=== PATIENT | female | born 1960 | race Caucasian/White ===

== ENCOUNTER 2019-06-25 18:43 | Inpatient (IN) ==
--- NOTE | 2019-06-25 19:55 | Emergency Department Note ---
Disposition Clinical Impression: Elevated transaminase level, Total bilirubin, elevated, RUQ abdominal pain Disposition: Admitted As Inpatient Condition: Good Time of Disposition: 21:51 Abdominal Pain HPI - General Chief Complaint: ED Abdominal Pain Stated Complaint: ABD Pain/Low back Time Seen by Provider: 06/25/19 19:40 Source: patient, family Mode of arrival: private vehicle Limitations: no limitations Nursing Notes Reviewed: Yes Vital Signs Reviewed: Yes - History of Present Illness HPI Narrative: 59-year-old female that is scheduled to have her gallbladder removed on but she states that she ate some peanut M&Ms on and since then has been having sharp right upper quadrant pain that radiates into her back. Occasionally it is as bad as 10 out of 10, right now is only 7/10. She notes she has only been able to eat canned soup. Although she states that has stayed down. She states that she simply cannot wait until the while she feels like this. She also states that she had a fever last night. Pain Scale: 8 - Related Data Home Medications Medication Instructions Recorded Confirmed Escitalopram [Lexapro] 5 mg PO DAILY 06/25/19 06/25/19 Allergies Allergy/AdvReac Type Severity Reaction Status Date / Time No Known Allergies Allergy Verified 06/25/19 19:14 Review of Systems: In addition to that documented in the HPI above, the additional ROS was obtained: Constitutional: Reports subjective fever last night Eyes: Denies vision changes ENMT: Denies sore throat CV: Denies chest pain Resp: Denies SOB GI: Denies vomiting or diarrhea Reports RUQ pain with radiation into her back : Denies painful urination MSK: Denies recent trauma Skin: Reports hives on her hands this morning, none now Neuro: Denies new numbness or tingling or weakness Endocrine: Denies unexpected weight loss Heme: Denies bleeding disorders Abdominal Pain PMH - Past Medical History Medical history: Reports: no medical history Female Surgical History: Reports: [employer] history: Reports: no [employer] history Psychiatric history: Reports: no psych history - Social History Smoking status: Never smoker Alcohol use: Reports: none Drug use: Reports: none Physical Exam General: A&O x 3. No acute distress. Well developed, well nourished. Head: atraumatic, normocephalic. ENT: No conjunctival injection, moderate scleral icterus. PERRLA. EOMI. Oropharynx non- erythematous. mucous membranes moist. Neuro: No focal deficits, no speech deficit, no facial droop, mentating well. BUE/BLE Str 5/5. Pulm: Lungs CTAB A/P. No wheezes, rales, ronchi. Cardio: RRR no m/r/g. Chest not tender to palpation. Abd: Soft, non-distended. Normoactive bowel sounds. Tender to palpation in RUQ, epigastric area. No guarding. Non rigid. Extremities: Radial pulses 2+ kyra, dorsalis pedis/posterior tibialis 2+ kyra. No LE edema. No cyanosis, clubbing. Skin: warm, dry, intact. No rashes. Psych: Appropriate mood and affect. Answers questions appropriately. Cooperative with exam. - General Limitations: no limitations General appearance: alert Course - Consultations Consultation #1: Spoke with Dr. Parson who states that she will evaluate the patient for possible removal tonight given her elevated LFTs. She requests that the floor call her once the patient is upstairs. Will keep her NPO and give a dose of zosyn. Time: 21:24 Vital Signs Temperature 97.6 F 06/25/19 19:14 Pulse Rate 101 06/25/19 19:14 Respiratory Rate 15 06/25/19 19:14 Blood Pressure 152/84 06/25/19 19:14 O2 Sat by Pulse Oximetry 97 06/25/19 19:14 Temperature 97.6 F 06/25/19 19:14 Pulse Rate 72 06/25/19 20:17 Respiratory Rate 16 06/25/19 20:17 Blood Pressure 99/81 06/25/19 20:17 O2 Sat by Pulse Oximetry 100 06/25/19 20:17 Oxygen Delivery Oxygen Delivery Room Air Procedures - Ultrasound-Other Narrative: Patient was treated for comfort and modesty. Ultrasound study had been placed through [facility] and was pulled up and packs. Phased array probe was used to visualize the gallbladder and a transverse position. Gallbladder was visualized and measurements were taken. Patient had a negative sonographic Maya sign during the exam. Study was ended and images were saved to PACS. Images were reviewed by my attending Dr. Tyrone Fox. Abdominal Pain - MDM Narrative Medical decision making narrative: 59-year-old female with scheduled cholecystectomy for July 12 but states that she has been having right upper quadrant pain since and states that she wants to know if she can have her gallbladder out now. Will obtain labs to include CBC, BMP, LFTs. We will obtain bedside ultrasound. Bedside ultrasound revealed a normal-appearing gallbladder without signs of obstruction. She had a negative sonographic Maya sign. Lab work was still pending. Pt had elevated bilirubin, elevated transaminases, and appeared jaundiced. Spoke with surgeon owner professional engineer, Dr. Parson, who states that she will see the pat ient and evaluate her for possible choleycystectomy. Spoke with Dr. Holly, hospitalist, who agreed to accept the pt to his service. Pt was given a dose of zosyn while in the department, fentanyl to treat her pain, and benadryl for her itching. Results of the workup including any imaging and/or labwork was shared with the patient at bedside. Patient was given an opportunity to ask questions at bedside and all of their concerns were addressed. Patient verbalized understanding and agreement with plan of care. Pt remained stable while in the department. - Medical Records Medical records reviewed: Yes I reviewed the patient's medical records. - Lab Data Lab results reviewed: Yes I reviewed the patient's lab results. Result diagrams: 06/26/19 08:44 06/26/19 08:44 Lab Results 06/25/19 06/25/19 06/25/19 Range/Units 19:47 19:58 19:58 WBC 5.6 (4.3-11.1) K/mcL RBC 3.90 (3.82-4.97) M/mcL Hgb 12.9 (11.5-15.4) g/dL Hct 38.8 (35.3-44.9) % MCV 99.5 (83.0-100.0) fL MCH 33.1 (28.0-33.3) pg MCHC 33.2 (31.6-35.5) g/dL RDW 12.3 (11.5-14.5) % Plt Count 256 (140-400) K/mcL MPV 9.7 (9.4-12.4) fL Immature Gran % 0.4 (0-4) % Seg Neutrophils % 62.8 % Lymphocytes % 27.1 % Monocytes % 6.4 % Eosinophils % 2.0 % Basophils % 1.3 % Neutrophils # 3.5 (1.6-8.9) K/mcL Lymphocytes # 1.5 (0.6-4.6) K/mcL Monocytes # 0.4 (0.0-1.3) K/mcL Eosinophils # 0.1 (0.0-0.6) K/mcL Basophils # 0.1 (0.0-0.2) K/mcL Sodium 136 (136-145) mEq/L Potassium 3.6 (3.5-5.1) mEq/L Chloride 103 (98-107) mEq/L Carbon Dioxide 24 (23-29) mEq/L BUN 7 (6-20) mg/dL Creatinine 0.53 L (0.60-1.20) mg/dL Est GFR ( Amer) > 60 (> 60) Est GFR (Non-Af Amer) > 60 (> 60) BUN/Creatinine Ratio 13 (6-26) Glucose 90 (70-105) mg/dL Calculated Osmolality 280 (280-300) Calcium 9.7 (8.6-10.3) mg/dL Total Bilirubin 5.0 H (0.3-1.0) mg/dL Direct Bilirubin 3.8 H (0.0-0.2) mg/dL Indirect Bilirubin 1.2 (0.0-1.2) mg/dL AST 242 H (13-39) Units/L ALT 451 H (7-52) Units/L Alkaline Phosphatase 160 H (34-104) Units/L Serum Total Protein 7.2 (6.4-8.9) g/dL Albumin 4.3 (3.5-5.7) g/dL Globulin 2.9 (2.4-3.5) g/dL Albumin/Globulin Ratio 1.5 (1.1-2.2) Lipase 20 (11-82) Units/L Urine Color Dark Yellow (Yellow) Urine Clarity Clear (Clear) Urine pH 5.0 (5.0-8.0) pH Units Ur Specific [place] 1.027 H (1.010-1.025) Urine Protein Negative (Neg-Trace) mg/dL Urine Glucose (UA) Normal (Normal) mg/dL Urine Ketones 80 H (Negative) mg/dL Urine Blood Negative (Negative) Urine Nitrite Positive A (Negative) Urine Bilirubin Large H (Negative) Urine Urobilinogen Normal (Normal) mg/dL Ur Leukocyte Esterase Small H (Negative) Urine Microscopic RBC 5-15 H (0-3) per hpf Urine Microscopic WBC 0-3 (0-3) per hpf Ur Squamous Epith Cells Moderate H (None-Few) per lpf Urine Bacteria None Seen (None-Few) per hpf Hyaline Casts None Seen (None-Few) per lpf Ur Culture Indicated? YES A (NO) Attestation Statement - Attestation Attestation: I, Tyrone Fox, examined this patient and my medical decision-making was reviewed with the SURVIVAL SPECIALIST/PA/Advanced Practice Nurse/Resident Physician. I agree with the documented findings, disposition and treatment plan as described except to the extent set forth below. 59-year-old female presents emergency Department with concerns of right upper quadrant abdominal pain. Patient states symptoms have been present intermittently over the past few months. She is scheduled for elective o utpatient surgery for cholecystectomy with Dr. Huffman however it Put off because of emergent cases those days. Patient states she ate peanut butter and limbs yesterday and had significant worsening of her pain. She is mildly jaundiced on her presentation. She noted dark-colored urine and light colored stool. She has diffuse pruritus which is worse in the bilateral wrists. Patient had a bedside ultrasound which did not show obvious gallbladder stone or pericholecystic fluid however patient had an abnormal HIDA scan with Dr. Huffman. We spoke with the surgeon, Dr. Anitra Burt who agrees the plan for admission to hospital. She is started on antibiotics in the emergency department. Patient will be admitted to the hospitalist for further care and evaluation. Patient was made nothing by mouth in the emergency department.
[2019-06-25 20:04] LABS: Bilirubin,Urine Large (Negative); Blood,Urine Negative (Negative); Clarity,Urine Clear (Clear); Glucose,Urine (UA) Normal (Normal); Ketones,Urine 80 mg/dL (Negative); Leukocyte Esterase,Urine Small (Negative); Nitrite,Urine Positive (Negative); Protein,Urine Negative (Neg-Trace); Specific Gravity,Urine 1.027 (1.010-1.025); Urobilinogen,Urine Normal (Normal)
[2019-06-25 20:06] LABS: Bacteria,Urine None Seen per hpf (None-Few); Hyaline Casts,Urine None Seen per lpf (None-Few); Squamous Epithelial Cell,Urine Moderate per lpf (None-Few); WBC,Urine 0-3 per hpf (0-3)
[2019-06-25 20:18] LABS: Color,Urine Dark Yellow (Yellow)
[2019-06-25] MEDS ORDERED: *HR* FentaNYL (PF) 100 MCG/2 ML VIAL IVP ONE (20:27)
[2019-06-25 20:49] LABS: Basophils # 0.1 K/mcL (0.0-0.2); Basophils % 1.3 %; Eosinophils # 0.1 K/mcL (0.0-0.6); Hematocrit 38.8 % (35.3-44.9); Hemoglobin 12.9 g/dL (11.5-15.4); Immature Granulocytes % 0.4 % (0-4); Lymphocytes # 1.5 K/mcL (0.6-4.6); Lymphocytes % 27.1 %; Mean Corpuscular HGB Conc 33.2 g/dL (31.6-35.5); Mean Corpuscular Hemoglobin 33.1 pg (28.0-33.3); Mean Corpuscular Volume 99.5 fL (83.0-100.0); Mean Platelet Volume 9.7 fL (9.4-12.4); Monocytes # 0.4 K/mcL (0.0-1.3); Monocytes % 6.4 %; Neutrophils # 3.5 K/mcL (1.6-8.9); Platelet Count 256 K/mcL (140-400); Red Cell Distribution Width 12.3 % (11.5-14.5); Segmented Neutrophils % 62.8 %; White Blood Count 5.6 K/mcL (4.3-11.1)
[2019-06-25 21:08] LABS: Alanine Aminotransferase 451 Units/L (7-52); Albumin 4.3 g/dL (3.5-5.7); Albumin/Globulin Ratio 1.5 (1.1-2.2); Alkaline Phosphatase 160 Units/L (34-104); Aspartate Amino Transferase 242 Units/L (13-39); BUN/Creatinine Ratio 13 (6-26); Bilirubin,Direct 3.8 mg/dL (0.0-0.2); Bilirubin,Indirect 1.2 mg/dL (0.0-1.2); Blood Urea Nitrogen 7 mg/dL (6-20); Calcium 9.7 mg/dL (8.6-10.3); Carbon Dioxide 24 mEq/L (23-29); Chloride 103 mEq/L (98-107); Globulin 2.9 g/dL (2.4-3.5); Glucose 90 mg/dL (70-105); Lipase 20 Units/L (11-82); Osmolality,Calculated 280 (280-300); Potassium 3.6 mEq/L (3.5-5.1); Sodium 136 mEq/L (136-145); Total Protein 7.2 g/dL (6.4-8.9); eGFR For African Americans > 60 (> 60); eGFR For Non-African Americans > 60 (> 60)
[2019-06-25] MEDS ORDERED: Piperacillin/Tazobactam 3.375 GM in 0.9 % Sodium Chloride Mini Bag 100 ML IVPB ONE (21:28)
[2019-06-25] MEDS ORDERED: Isovue-370 500 ML BOTTLE IVP ONE (21:43)
[2019-06-25] MEDS ORDERED: Naloxone 0.4 MG/ML INJ IVP PRN (22:51)
[2019-06-25] MEDS ORDERED: Ondansetron 4 MG/2 ML VIAL IVP PRN (22:51)
[2019-06-25] MEDS ORDERED: 0.9 % Sodium Chloride 1,000 ML IVC SCH (23:00)
[2019-06-26] MEDS: Ketorolac 15 MG/ML VIAL IVP PRN ×2 (01:03→08:03)
--- NOTE | 2019-06-26 04:24 | Internal Med History&Physical ---
Date of Encounter: 06/26/19 Time of Encounter: 04:24 Internal Medicine - H&P: HPI Chief complaint: Abdominal pain History of present illness: Ms. Mercado is a 59 year old female with no significant past medical history who presented to the ED with complaints of abdominal pain. Symptoms began on with reported right upper quadrant abdominal pain radiating to her back described as colicky and exacerbated with certain foods. At worst 10 out of 10 in intensity. She reports subjective fever, chills and nausea. No reports of vomiting, or diarrhea. Denies unintentional weight loss. Patient does not smoke. No alcohol history. Family history of an abdominal cancer in her father. Patient states she has an appointment with Dr. Huffman for elective cholecystectomy which has been postponed on 2 occasions and has been postponed until July 12. At this time she feels that she cannot wait until the and was requesting to see if she can get her gallbladder out now. On arrival patient was afebrile, hemodynamically stable. Initial laboratory workup notable for total bilirubin of 5 with a direct hyperbilirubinemia and elevated liver enzymes. Patient was noted to be jaundiced. Bedside ultrasound revealed a normal-appearing gallbladder without signs of obstruction. She had a negative sonographic Maya sign. CT scan of the abdomen and pelvis with contrast was performed which showed intra-and extrahepatic biliary ductal dilatation with a headache low attenuating focus in the pancreatic head. Evidence of cholelithiasis without cholecystitis was seen. Pt was given a dose of zosyn while in the department, fentanyl to treat her pain. Case was discussed with Dr. Parson, who states that she will see the patient and evaluate her for possible choleycystectomy. Past Med Surg Social Fam HX - Past Medical History Medical history: no medical history Additional medical history: Depression. Abnormal Hida Scan. Right Upper Abdominal Pain Psychiatric history: no psych history - Past Surgical History Surgical History: - Social History Smoking Status: Never smoker Smokeless Tobacco Status: No Alcohol use: none Drug use: none - Family History Father Adopted: No Family Member Ethnicity: Non- Living Status: Age at : 74 Cause of : cancer Hx Family Cancer: Yes (stomach) Internal Medicine - H&P: Meds Escitalopram [Lexapro] 5 mg PO DAILY 06/25/19 [History] Allergy/AdvReac Type Severity Reaction Status Date / Time No Known Allergies Allergy Verified 06/25/19 19:14 All Systems PM: A 10-system review of systems was performed and is negative for pertinent findings except as documented above in the HPI. - Constitutional Constitutional: no chills, no fever(s), no night sweats - EENT Eyes: no change in vision, no discharge, no pain, no photophobia Ears: no ear discharge, no ear pain, no tinnitus Nose, mouth and throat: no dysphagia, no nasal discharge, no neck pain, no sore throat - Cardiovascular Cardiovascular ROS IM: no chest pain, no diaphoresis, no dyspnea, no lig htheadedness, no palpitations, no syncope - Respiratory Respiratory: no cough, no dyspnea, no wheezing, no excessive phlegm production - Gastrointestinal Gastrointestinal: no abdominal pain, no diarrhea, no hematemesis, no hematochezia, no melena, no nausea, no vomiting - Genitourinary Genitourinary: no change in urinary stream, no dysuria, no flank pain, no hematuria - Musculoskeletal Musculoskeletal ROS IM: no numbness, no tingling - Integumentary Integumentary IM: no rash, no unusual bruising - Neurological Neurological ROS: no confusion, no convulsions, no focal weakness, no numbness, no tingling, no tremor(s) - Hematologic/Lymphatic Hematologic/Lymphatic: no easy bruising - Constitutional Vitals: Temp Pulse Resp BP Pulse Ox 98.7 F 81 18 118/82 97 06/26/19 03:43 06/26/19 03:43 06/26/19 03:43 06/26/19 03:43 06/26/19 03:43 Exam: General: Alert and oriented 3 Skin:Normal color, no rash, no lesions. HEENT:EOM, pupils equal, round and reactive. Cardiovascular:Normal S1 & S2, no rubs, murmurs or gallops. No JVD. Pulse reg ular. Lungs:Normal breath sounds, no wheezes or crackles. Abdomen:Soft, non-tender, no rigidity. Mild right upper quadrant tenderness to palpation Extremities:No deformity, no edema or tenderness, no joint swelling or clubbing. Neurological:Normal cognition and motor skills. Pulses:Carotid and radial pulses normal +2. Rest of the physical exam is non contributory Internal Med - H&P Results - Labs CBC & Chem 7: 06/26/19 08:44 06/25/19 19:58 Labs: Short CBC 06/25/19 Range/Units 19:58 WBC 5.6 (4.3-11.1) K/mcL Hgb 12.9 (11.5-15.4) g/dL Hct 38.8 (35.3-44.9) % Plt Count 256 (140-400) K/mcL Neutrophils # 3.5 (1.6-8.9) K/mcL BMP 06/25/19 19:58 Sodium 136 Potassium 3.6 Chloride 103 Carbon Dioxide 24 BUN 7 Creatinine 0.53 L Glucose 90 Calcium 9.7 Liver Function 06/25/19 Range/Units 19:58 Total Bilirubin 5.0 H (0.3-1.0) mg/dL Direct Bilirubin 3.8 H (0.0-0.2) mg/dL AST 242 H (13-39) Units/L ALT 451 H (7-52) Units/L Alkaline Phosphatase 160 H (34-104) Units/L Albumin 4.3 (3.5-5.7) g/dL Urine 06/25/19 Range/Units 19:47 Urine Color Dark Yellow (Yellow) Urine Clarity Clear (Clear) Urine pH 5.0 (5.0-8.0) pH Units Ur Specific [place] 1.027 H (1.010-1.025) Urine Protein Negative (Neg-Trace) mg/dL Urine Glucose (UA) Normal (Normal) mg/dL - Impressions ITS Impressions Gallbladder Ultrasound 06/25/19 21:03 IMPRESSION: Intra and extrahepatic biliary ductal dilatation. A distal obstructing lesion is not excluded. Additional imaging with MRI with MRCP or ERCP should be considered. D/ / Nicanor Bañuelos / Nicanor Bañuelos Interpreting Provider: Nicanor Bañuelos Abdomen CT 06/25/19 21:43 IMPRESSION: Intra and extrahepatic biliary ductal dilatation with vague low attenuating focus in the pancreatic head/uncinate process. MRI with MRCP is advised for complete characterization. Cholelithiasis without evidence of cholecystitis. Layering biliary sludge. The findings were sent to the Radiology Results Communication [facility] at 10:44 pm on 06/25/2019to be communicated to a licensed caregiver. D/ / Nicanor Bañuelos / Nicanor Bañuelos Interpreting Provider: Nicanor Bañuelos - Assessment and Plan (1) RUQ abdominal pain Current Visit: Yes Status: Acute Assessment and plan: Patient presenting with right upper quadrant colicky abdominal pain exacerbated with food radiating to the back concerning for acute cholecystitis. Noted to have significant elevation in bilirubin with a predominantly direct hyperbilirubinemia. CT scan of the abdomen showing evidence of cholelithiasis without evidence of cholecystitis. Additionally, intra-and extrahepatic biliary duct dilatation with vague low attenuating focus in the pancreatic head was noted with recommendation for MRCP. Due to concern for choledocholithiasis, case was discussed with Dr. Talley with gastroenterology. He recommended MRCP as well as MRI of the abdomen for further characterization of pancreatic head lesion. CA 199 was also ordered. Discussed case with surgery who will also evaluate the patient in the morning. -We will obtain MRCP/MRI today -Support with fluids -Pain control as needed -Follow up CA 199 -Keep patient NPO -Follow up surgery/GI recommendations (2) Elevated transaminase level Current Visit: Yes Status: Acute Assessment and plan: See above (3) Total bilirubin, elevated Current Visit: Yes Status: Acute Assessment and plan: See above - Time Spent With Patient Total time spent is greater than 50% in coordination of care (as documented) at patient's floor/unit and/or counseling patient:
[2019-06-26] MEDS ORDERED: Gadolinium Contrast Agent (WT Based) IV PRN (04:49)
[2019-06-26] MEDS: Piperacillin/Tazobactam 3.375 GM in 0.9 % Sodium Chloride Mini Bag 100 ML IVPB SCH ×3 (05:13→21:28)
--- NOTE | 2019-06-26 08:51 | AcuteCare Surgery Consult Note ---
Date of Encounter: 06/26/19 Time of Encounter: 08:00 Assessment and Plan (1) Total bilirubin, elevated Current Visit: Yes Status: Acute ABD/Pelvis CT reveals cholelithiasis with dilated intrahepatic and extrahepatic bile ducts as well as small abnormality on the pancreatic head. Pt sees Dr. Huffman and is scheduled for lap melissa with him soon. We will obtain MRCP to evaluate for distal CBD stone vs pancreatic head mass. If MRCP reveals CBD stone then will consult GI for ERCP prior to lap melissa. (2) RUQ abdominal pain Current Visit: Yes Status: Acute (3) Cholelithiasis Current Visit: Yes Status: Acute (4) Abnormal abdominal CT scan Current Visit: Yes Status: Acute Past Med Surg Social Fam HX - Past Medical History Medical history: no medical history Additional medical history: Depression. Abnormal Hida Scan. Right Upper Abdominal Pain Psychiatric history: no psych history - Past Surgical History Surgical History: - Social History Smoking Status: Never smoker Smokeless Tobacco Status: No Alcohol use: none Drug use: none - Family History Father Adopted: No Family Member Ethnicity: Non- Living Status: Age at : 74 Cause of : cancer Hx Family Cancer: Yes (stomach) Medications and Allergies Escitalopram [Lexapro] 10 mg PO DAILY 06/25/19 [History] Allergy/AdvReac Type Severity Reaction Status Date / Time No Known Allergies Allergy Verified 06/26/19 14:23 Review of Systems All systems PM: The remainder of the systems were reviewed and are negative General Surgery Exam Initial Vital Signs Temp Pulse Resp BP Pulse Ox 97.6 F 101 15 152/84 97 06/25/19 19:14 06/25/19 19:14 06/25/19 19:14 06/25/19 19:14 06/25/19 19:14 Exam Initial Vital Signs Temp Pulse Resp BP Pulse Ox 97.6 F 101 15 152/84 97 06/25/19 19:14 06/25/19 19:14 06/25/19 19:14 06/25/19 19:14 06/25/19 19:14 Results - Labs 06/26/19 08:44 06/26/19 08:44 Abnormal lab results Creatinine 0.53 mg/dL (0.60-1.20) L 06/25/19 19:58 Total Bilirubin 5.0 mg/dL (0.3-1.0) H 06/25/19 19:58 Direct Bilirubin 3.8 mg/dL (0.0-0.2) H 06/25/19 19:58 AST 242 Units/L (13-39) H 06/25/19 19:58 ALT 451 Units/L (7-52) H 06/25/19 19:58 Alkaline Phosphatase 160 Units/L (34-104) H 06/25/19 19:58 Ur Specific [place] 1.027 (1.010-1.025) H 06/25/19 19:47 Urine Ketones 80 mg/dL (Negative) H 06/25/19 19:47 Urine Nitrite Positive (Negative) A 06/25/19 19:47 Urine Bilirubin Large (Negative) H 06/25/19 19:47 Ur Leukocyte Esterase Small (Negative) H 06/25/19 19:47 Urine Microscopic RBC 5-15 per hpf (0-3) H 06/25/19 19:47 Ur Squamous Epith Cells Moderate per lpf (None-Few) H 06/25/19 19:47 Ur Culture Indicated? YES (NO) A 06/25/19 19:47 Diabetes panel 06/25/19 Range/Units 19:58 Sodium 136 (136-145) mEq/L Potassium 3.6 (3.5-5.1) mEq/L Chloride 103 (98-107) mEq/L Carbon Dioxide 24 (23-29) mEq/L BUN 7 (6-20) mg/dL Creatinine 0.53 L (0.60-1.20) mg/dL Glucose 90 (70-105) mg/dL Calcium 9.7 (8.6-10.3) mg/dL AST 242 H (13-39) Units/L ALT 451 H (7-52) Units/L Alkaline Phosphatase 160 H (34-104) Units/L Albumin 4.3 (3.5-5.7) g/dL Calcium panel 06/25/19 Range/Units 19:58 Calcium 9.7 (8.6-10.3) mg/dL Albumin 4.3 (3.5-5.7) g/dL Pituitary panel 06/25/19 Range/Units 19:58 Sodium 136 (136-145) mEq/L Potassium 3.6 (3.5-5.1) mEq/L Chloride 103 (98-107) mEq/L Carbon Dioxide 24 (23-29) mEq/L BUN 7 (6-20) mg/dL Creatinine 0.53 L (0.60-1.20) mg/dL Glucose 90 (70-105) mg/dL Calcium 9.7 (8.6-10.3) mg/dL Adrenal panel 06/25/19 Range/Units 19:58 Sodium 136 (136-145) mEq/L Potassium 3.6 (3.5-5.1) mEq/L Chloride 103 (98-107) mEq/L Carbon Dioxide 24 (23-29) mEq/L BUN 7 (6-20) mg/dL Creatinine 0.53 L (0.60-1.20) mg/dL Glucose 90 (70-105) mg/dL Calcium 9.7 (8.6-10.3) mg/dL Total Bilirubin 5.0 H (0.3-1.0) mg/dL AST 242 H (13-39) Units/L ALT 451 H (7-52) Units/L Alkaline Phosphatase 160 H (34-104) Units/L Albumin 4.3 (3.5-5.7) g/dL All other labs normal. Consult Discharge Plan - Plan Referrals: Pal Gar MD [Primary Care Provider] -
[2019-06-26 09:07] LABS: Basophils # 0.1 K/mcL (0.0-0.2); Eosinophils # 0.1 K/mcL (0.0-0.6); Hematocrit 38.6 % (35.3-44.9); Hemoglobin 12.5 g/dL (11.5-15.4); Immature Granulocytes % 0.6 % (0-4); Lymphocytes # 0.9 K/mcL (0.6-4.6); Lymphocytes % 19.1 %; Mean Corpuscular HGB Conc 32.4 g/dL (31.6-35.5); Mean Corpuscular Hemoglobin 32.8 pg (28.0-33.3); Mean Corpuscular Volume 101.3 fL (83.0-100.0); Mean Platelet Volume 9.5 fL (9.4-12.4); Monocytes # 0.2 K/mcL (0.0-1.3); Neutrophils # 3.5 K/mcL (1.6-8.9); Platelet Count 234 K/mcL (140-400); Red Blood Count 3.81 M/mcL (3.82-4.97); Red Cell Distribution Width 12.2 % (11.5-14.5); Segmented Neutrophils % 73.3 %; White Blood Count 4.8 K/mcL (4.3-11.1)
[2019-06-26 09:13] LABS: Prothrombin Time 11.5 Seconds (9.4-12.1)
[2019-06-26 09:16] LABS: Activated Partial Thrombo Time 35.5 Seconds (26.0-36.0)
[2019-06-26 09:26] LABS: Alanine Aminotransferase 361 Units/L (7-52); Albumin 3.9 g/dL (3.5-5.7); Albumin/Globulin Ratio 1.6 (1.1-2.2); Alkaline Phosphatase 155 Units/L (34-104); Aspartate Amino Transferase 169 Units/L (13-39); BUN/Creatinine Ratio 18 (6-26); Bilirubin,Total 5.4 mg/dL (0.3-1.0); Blood Urea Nitrogen 9 mg/dL (6-20); Calcium 9.3 mg/dL (8.6-10.3); Carbon Dioxide 20 mEq/L (23-29); Chloride 104 mEq/L (98-107); Globulin 2.5 g/dL (2.4-3.5); Glucose 71 mg/dL (70-105); Osmolality,Calculated 287 (280-300); Potassium 3.9 mEq/L (3.5-5.1); Sodium 140 mEq/L (136-145); Total Protein 6.4 g/dL (6.4-8.9); eGFR For African Americans > 60 (> 60); eGFR For Non-African Americans > 60 (> 60)
[2019-06-26] MEDS ORDERED: traMADol 50 MG TABLET PO ONE ×2 (11:35→19:59)
[2019-06-26] MEDS ORDERED: *HR* FentaNYL (PF) 100 MCG/2 ML VIAL IVP PRN (13:56)
--- NOTE | 2019-06-26 14:07 | Internal Med Progress Note ---
Hospitalist Progress Note - Encounter Date of Encounter: 06/26/19 Time of Encounter: 14:01 - Exam Vitals: Temp Pulse Resp BP Pulse Ox 97.9 F 66 15 143/75 97 06/26/19 12:41 06/26/19 12:41 06/26/19 12:41 06/26/19 12:41 06/26/19 12:41 Exam: General: Ill-appearing and in no acute distress HEENT: No erythema of posterior pharynx. No exudates. Lymphatics: No mandibular or cervical lymphadenopathy Cardiovascular: RRR. No murmurs. No chest wall tenderness. Lungs: Clear to auscelltation bilaterally. Regular chest rise. Abdomen: Mile RUQ and epigastric tenderness. No rebound or gaurding. Nl bowel sounds. Extremities: No edema. 2+ pulses radial and pedal pulses Skin: Raised papular rash of wrists, palms, and ankles Psych: Nl attention. A&Ox3 Neuro: car audio installer II-XII intact. 5/5 strength. Sensation to light touch and pinprick intact. - Assessment and Plan (1) RUQ abdominal pain Current Visit: Yes Status: Acute Assessment and Plan: Patient with history of cholestasis with planned laparoscopic cholecystectomy for later this month presents with progressive right upper quadrant pain after eating in the setting of stable vitals on admission, right upper quadrant tenderness with positive Maya's sign on physical exam, elevated bili and transaminases, and CT with evidence of intra-and extra hepatic biliary dilation with focus on pancreatic head. -Patient has evidence of cholestasis but unclear if this is related to obstruction from a pancreatic head mass versus gallstones -MRCP was recommended and will be completed today -Surgery has been consulted PLAN: - MRCP - Pain control - Surgery consulting, appreciate recommendations (2) Cholestasis Current Visit: Yes Status: Acute Assessment and Plan: See above (3) Pruritic rash Current Visit: Yes Status: Acute Assessment and Plan: Presumably secondary to cholestasis given timing and characteristics of rash. - Benadryl cream when necessary - Treatment of underlying disease process DVT Prophylaxis: LMWH Internal Medicine: Result - Labs CBC & Chem 7: 06/26/19 08:44 06/26/19 08:44 Labs: Short CBC 06/25/19 06/26/19 Range/Units 19:58 08:44 WBC 5.6 4.8 (4.3-11.1) K/mcL Hgb 12.9 12.5 (11.5-15.4) g/dL Hct 38.8 38.6 (35.3-44.9) % Plt Count 256 234 (140-400) K/mcL Neutrophils # 3.5 3.5 (1.6-8.9) K/mcL BMP 06/25/19 06/26/19 19:58 08:44 Sodium 136 140 Potassium 3.6 3.9 Chloride 103 104 Carbon Dioxide 24 20 L BUN 7 9 Creatinine 0.53 L 0.51 L Glucose 90 71 Calcium 9.7 9.3 Liver Function 06/25/19 06/26/19 Range/Units 19:58 08:44 Total Bilirubin 5.0 H 5.4 H (0.3-1.0) mg/dL Direct Bilirubin 3.8 H (0.0-0.2) mg/dL AST 242 H 169 H (13-39) Units/L ALT 451 H 361 H (7-52) Units/L Alkaline Phosphatase 160 H 155 H (34-104) Units/L Albumin 4.3 3.9 (3.5-5.7) g/dL Urine 06/25/19 Range/Units 19:47 Urine Color Dark Yellow (Yellow) Urine Clarity Clear (Clear) Urine pH 5.0 (5.0-8.0) pH Units Ur Specific [place] 1.027 H (1.010-1.025) Urine Protein Negative (Neg-Trace) mg/dL Urine Glucose (UA) Normal (Normal) mg/dL - ABG Interpretation ABG results: PT/INR, D-dimer PT 11.5 Seconds (9.4-12.1) 06/26/19 08:44 - Impressions Impressions Gallbladder Ultrasound 06/25/19 21:03 IMPRESSION: Intra and extrahepatic biliary ductal dilatation. A distal obstructing lesion is not excluded. Additional imaging with MRI with MRCP or ERCP should be considered. D/ / Nicanor Bañuelos / Nicanor Bañuelos Interpreting Provider: Nicanor Bañuelos Abdomen CT 06/25/19 21:43 IMPRESSION: Intra and extrahepatic biliary ductal dilatation with vague low attenuating focus in the pancreatic head/uncinate process. MRI with MRCP is advised for complete characterization. Cholelithiasis without evidence of cholecystitis. Layering biliary sludge. The findings were sent to the [facility]iology [facility] at 10:44 pm on 06/25/2019to be communicated to a licensed caregiver. D/ / Nicanor Bañuelos / Nicanor Bañuelos Interpreting Provider: Nicanor Bañuelos Consult Discharge Plan - Plan Referrals: Pal Gar MD [Primary Care Provider] -
[2019-06-26] MEDS: *HR* OxyCODONE Immed Rel 5 MG TABLET PO PRN ×3 (14:52→23:36)
[2019-06-26] MEDS: DiphenhydraMINE CREAM 28.4 GM TUBE TP PRN ×2 (16:31→22:21)
[2019-06-26] MEDS: Ringers Solution, Lactated 1,000 ML IVC SCH (16:31)
[2019-06-26] MEDS ORDERED: traMADol 50 MG TABLET PO PRN (20:52)
[2019-06-26 21:35] LABS: Hepatitis B Surface Antigen Nonreactive (Nonreactive)
[2019-06-26 22:04] LABS: Hepatitis B Core IgM Nonreactive (Nonreactive); Hepatitis C Virus Antibody Nonreactive (Nonreactive)
[2019-06-26 22:05] LABS: Hepatitis A Antibody IgM Nonreactive (Nonreactive)
[2019-06-26] MEDS: *HR* Heparin 5,000 UNIT/ML VIAL SQ SCH (22:25)
[2019-06-27] MEDS: DiphenhydraMINE CREAM 28.4 GM TUBE TP PRN ×2 (03:46→14:31)
[2019-06-27 05:08] LABS: Hematocrit 36.3 % (35.3-44.9); Mean Corpuscular HGB Conc 33.1 g/dL (31.6-35.5); Mean Corpuscular Hemoglobin 32.9 pg (28.0-33.3); Mean Corpuscular Volume 99.5 fL (83.0-100.0); Mean Platelet Volume 9.6 fL (9.4-12.4); Platelet Count 236 K/mcL (140-400); Red Blood Count 3.65 M/mcL (3.82-4.97); Red Cell Distribution Width 12.5 % (11.5-14.5); White Blood Count 4.6 K/mcL (4.3-11.1)
[2019-06-27] MEDS ORDERED: *HR* Enoxaparin 40 MG/0.4 ML SYRINGE SQ SCH (06:00)
[2019-06-27] MEDS: *HR* Heparin 5,000 UNIT/ML VIAL SQ SCH ×3 (06:01→21:06)
[2019-06-27] MEDS: Piperacillin/Tazobactam 3.375 GM in 0.9 % Sodium Chloride Mini Bag 100 ML IVPB SCH ×3 (06:03→21:08)
--- NOTE | 2019-06-27 09:25 | AcuteCareSurgery Progress Note ---
Date of Encounter: 06/27/19 Time of Encounter: 07:50 - Assessment and Plan (1) Cholelithiasis with choledocholithiasis Current Visit: Yes Status: Acute The patient is seen and evaluated on morning rounds with the acute care surgery team. She will require ERCP for demonstrated choledocholithiasis prior to surgical intervention for cholelithiasis. We will follow along with you. Surgical planning based on ERCP results Subjective Narrative: The patient has a bilirubin of 5.4 and cholelithiasis with choledocholithiasis demonstrated on MRCP. She will require preoperative ERCP with sphincterotomy and stone removal. We would plan convalescent laparoscopic cholecystectomy during this hospitalization once the bilirubin has normalized. We will continue to follow along with you. Surgical planning based on ERCP findings Objective Vital Signs - Last 8 Hours Temp Pulse Resp BP Pulse Ox 06/27/19 06:56 98.0 F 68 15 124/73 98 06/27/19 04:24 98.4 F 101 14 144/81 95 Intake and Output 06/26/19 06/27/19 06/27/19 23:59 07:59 15:59 Intake Total 100 / 1300 100 / 100 Output Total 0 / 0 Balance 100 / 1300 100 / 100 Intake: IV Fluids 100 / 1300 100 / 100 Zosyn 3.375 GM In 0.9 % Sodium 100 / 200 100 / 100 Chloride (Mini-Bag +) 100 ML @ 25 mls/hr IVPB Q8H [facility] Rx#: [id number] Oral 0 / 0 0 / 0 Output: Urine 0 / 0 Other: # Voids 1 Weight 88 kg Blood Glucose* 60 Patient Weight 06/27/19 23:59 Weight 88 kg - General physical appearance well developed, well nourished, obese - Respiratory normal expansion, normal respiratory effort, clear to percussion, clear to au scultation - Cardiovascular Cardiovascular exam: Present: RRR, no murmurs/rubs/gallops - Abdomen Abdomen: Present: bowel sounds present, soft, non tender - Neurologic CN 2-12 grossly intact - Psychiatric oriented to time, oriented to person, oriented to place, speech is normal, memory intact - Labs 06/27/19 04:30 06/26/19 08:44 Diabetes panel 06/26/19 Range/Units 08:44 Sodium 140 (136-145) mEq/L Potassium 3.9 (3.5-5.1) mEq/L Chloride 104 (98-107) mEq/L Carbon Dioxide 20 L (23-29) mEq/L BUN 9 (6-20) mg/dL Creatinine 0.51 L (0.60-1.20) mg/dL Glucose 71 (70-105) mg/dL Calcium 9.3 (8.6-10.3) mg/dL AST 169 H (13-39) Units/L ALT 361 H (7-52) Units/L Alkaline Phosphatase 155 H (34-104) Units/L Albumin 3.9 (3.5-5.7) g/dL Calcium panel 06/26/19 Range/Units 08:44 Calcium 9.3 (8.6-10.3) mg/dL Albumin 3.9 (3.5-5.7) g/dL Pituitary panel 06/26/19 Range/Units 08:44 Sodium 140 (136-145) mEq/L Potassium 3.9 (3.5-5.1) mEq/L Chloride 104 (98-107) mEq/L Carbon Dioxide 20 L (23-29) mEq/L BUN 9 (6-20) mg/dL Creatinine 0.51 L (0.60-1.20) mg/dL Glucose 71 (70-105) mg/dL Calcium 9.3 (8.6-10.3) mg/dL Adrenal panel 06/26/19 Range/Units 08:44 Sodium 140 (136-145) mEq/L Potassium 3.9 (3.5-5.1) mEq/L Chloride 104 (98-107) mEq/L Carbon Dioxide 20 L (23-29) mEq/L BUN 9 (6-20) mg/dL Creatinine 0.51 L (0.60-1.20) mg/dL Glucose 71 (70-105) mg/dL Calcium 9.3 (8.6-10.3) mg/dL Total Bilirubin 5.4 H (0.3-1.0) mg/dL AST 169 H (13-39) Units/L ALT 361 H (7-52) Units/L Alkaline Phosphatase 155 H (34-104) Units/L Albumin 3.9 (3.5-5.7) g/dL Consult Discharge Plan - Plan Referrals: Pal Gar MD [Primary Care Provider] -
[2019-06-27] MEDS: Ringers Solution, Lactated 1,000 ML IVC SCH (09:38)
--- NOTE | 2019-06-27 11:21 | Internal Med Progress Note ---
Hospitalist Progress Note - Encounter Date of Encounter: 06/27/19 Time of Encounter: 11:19 - Subjective Interval History: Feels better than she did yesterday. Has been able to tolerate clear liquid diet. Does not want to advance further. - Exam Vitals: Temp Pulse Resp BP Pulse Ox 98.0 F 68 15 124/73 98 06/27/19 06:56 06/27/19 06:56 06/27/19 06:56 06/27/19 06:56 06/27/19 06:56 Exam: General: Alert and oriented 3 Skin:Normal color, no rash, no lesions. HEENT:EOM, pupils equal, round and reactive. Cardiovascular:Normal S1 & S2, no rubs, murmurs or gallops. No JVD. Pulse regular. Lungs:Normal breath sounds, no wheezes or crackles. Abdomen:Soft, non-tender, no rigidity. Mild right upper quadrant tenderness to palpation Extremities:No deformity, no edema or tenderness, no joint swelling or clubbing. Neurological:Normal cognition and motor skills. Pulses:Carotid and radial pulses normal +2. Rest of the physical exam is non contributory - Assessment and Plan (1) Choledocholithiasis Current Visit: Yes Status: Acute Assessment and Plan: Patient with history of cholestasis with planned laparoscopic cholecystectomy for later this month presents with progressive right upper quadrant pain after eating in the setting of stable vitals on admission, right upper quadrant tenderness with positive Maya's sign on physical exam, elevated bili and transaminases, CT evidence of cholelithiasis without evidence of cholecystitis, and MRCP with evidence of choledochlithiasis. -Case discussed with both GI and surgery Plan for ERCP Thursday Planned for laparoscopic cholecystectomy thereafter Common bile duct stone is small and thus alternative etiologies should be considered GI recommended obtaining autoimmune labs which are pending PLAN: - Clear liquid diet today - Nothing by mouth at midnight for ERCP tomorrow - Pain control - Autoimmune w/u: MARA, AMA, Anti-goldberg Ig - IVF - Zosyn (2) Cholelithiasis Current Visit: Yes Status: Acute Assessment and Plan: Plans for lap melissa after ERCP (3) Pruritic rash Current Visit: Yes Status: Acute Assessment and Plan: Presumably secondary to cholestasis given timing and characteristics of rash. - Benadryl cream when necessary - Treatment of underlying disease process DVT Prophylaxis: heparin Internal Medicine: Result - Labs CBC & Chem 7: 06/27/19 04:30 06/26/19 08:44 Labs: Short CBC 06/27/19 Range/Units 04:30 WBC 4.6 (4.3-11.1) K/mcL Hgb 12.0 (11.5-15.4) g/dL Hct 36.3 (35.3-44.9) % Plt Count 236 (140-400) K/mcL - ABG Interpretation ABG results: PT/INR, D-dimer PT 11.5 Seconds (9.4-12.1) 06/26/19 08:44 - Impressions Impressions Abdomen MRI 06/26/19 04:49 IMPRESSION: 1. Mild to moderate intra- and extrahepatic biliary dilatation. The common bile duct demonstrates normal distal tapering. Questionable distal common bile duct stone measuring 2 mm may be present. No discrete periampullary mass or pancreatic mass. 2. Cholelithiasis with gallbladder sludge. No MRI evidence of acute cholecystitis. D/ / 06/26/2019 16:38:16 Susy Bush MD / dixie Interpreting Provider: Susy Bush MD Consult Discharge Plan - Plan Referrals: Pal Gar MD [Primary Care Provider] - (2) Cholelithiasis Qualifiers: Cholelithiasis location: gallbladder Cholecystitis acuity: acute and chronic Biliary obstruction: without biliary obstruction Qualified Code(s): K80.12 - Calculus of gallbladder with acute and chronic cholecystitis without obstruction
[2019-06-27 11:29] LABS: Alanine Aminotransferase 266 Units/L (7-52); Albumin 3.5 g/dL (3.5-5.7); Albumin/Globulin Ratio 1.5 (1.1-2.2); Alkaline Phosphatase 155 Units/L (34-104); Aspartate Amino Transferase 125 Units/L (13-39); Blood Urea Nitrogen 5 mg/dL (6-20); Carbon Dioxide 25 mEq/L (23-29); Chloride 102 mEq/L (98-107); Globulin 2.4 g/dL (2.4-3.5); Glucose 121 mg/dL (70-105); Osmolality,Calculated 283 (280-300); Potassium 3.3 mEq/L (3.5-5.1); Sodium 137 mEq/L (136-145); Total Protein 5.9 g/dL (6.4-8.9)
[2019-06-27 12:26] LABS: BUN/Creatinine Ratio 8 (6-26); eGFR For African Americans > 60 (> 60); eGFR For Non-African Americans > 60 (> 60)
[2019-06-28] MEDS: Ringers Solution, Lactated 1,000 ML IVC SCH ×2 (01:00→16:47)
[2019-06-28 05:27] LABS: Hematocrit 35.6 % (35.3-44.9); Hemoglobin 11.8 g/dL (11.5-15.4); Mean Corpuscular HGB Conc 33.1 g/dL (31.6-35.5); Mean Corpuscular Hemoglobin 32.9 pg (28.0-33.3); Mean Corpuscular Volume 99.2 fL (83.0-100.0); Mean Platelet Volume 9.5 fL (9.4-12.4); Platelet Count 210 K/mcL (140-400); Red Blood Count 3.59 M/mcL (3.82-4.97); Red Cell Distribution Width 12.8 % (11.5-14.5); White Blood Count 4.4 K/mcL (4.3-11.1)
[2019-06-28 05:46] LABS: Alanine Aminotransferase 220 Units/L (7-52); Albumin 3.4 g/dL (3.5-5.7); Albumin/Globulin Ratio 1.5 (1.1-2.2); Alkaline Phosphatase 138 Units/L (34-104); Aspartate Amino Transferase 95 Units/L (13-39); BUN/Creatinine Ratio 6 (6-26); Bilirubin,Total 2.3 mg/dL (0.3-1.0); Blood Urea Nitrogen 3 mg/dL (6-20); Calcium 9.1 mg/dL (8.6-10.3); Carbon Dioxide 29 mEq/L (23-29); Chloride 105 mEq/L (98-107); Globulin 2.3 g/dL (2.4-3.5); Glucose 99 mg/dL (70-105); Osmolality,Calculated 291 (280-300); Potassium 3.6 mEq/L (3.5-5.1); Sodium 142 mEq/L (136-145); Total Protein 5.7 g/dL (6.4-8.9); eGFR For African Americans > 60 (> 60); eGFR For Non-African Americans > 60 (> 60)
[2019-06-28] MEDS: Piperacillin/Tazobactam 3.375 GM in 0.9 % Sodium Chloride Mini Bag 100 ML IVPB SCH ×3 (06:13→21:16)
[2019-06-28] MEDS: *HR* Heparin 5,000 UNIT/ML VIAL SQ SCH (06:14)
--- NOTE | 2019-06-28 08:50 | Internal Med Progress Note ---
Hospitalist Progress Note - Encounter Date of Encounter: 06/28/19 Time of Encounter: 08:48 - Subjective Interval History: Patient feeling much better this morning. Abdominal pain has resolved rash is improving. Labs are improving. - Exam Vitals: Temp Pulse Resp BP Pulse Ox 98.1 F 68 16 130/85 98 06/28/19 06:53 06/28/19 06:53 06/28/19 06:53 06/28/19 06:53 06/28/19 06:53 Exam: General: Ill-appearing and in no acute distress HEENT: No erythema of posterior pharynx. No exudates. Lymphatics: No mandibular or cervical lymphadenopathy Cardiovascular: RRR. No murmurs. No chest wall tenderness. Lungs: Clear to auscelltation bilaterally. Regular chest rise. Abdomen: Non-tender. No rebound or gaurding. Nl bowel sounds. Extremities: No edema. 2+ pulses radial and pedal pulses Skin: Papular rash around flexor surfaces of wrist and extensor surface of fore arms. Erythroderma of groin region. Psych: Nl attention. A&Ox3 Neuro: balance weigher II-XII intact. 5/5 strength. Sensation to light touch and pinprick intact. - Assessment and Plan (1) Choledocholithiasis Current Visit: Yes Status: Acute Assessment and Plan: Patient with history of cholestasis with planned laparoscopic cholecystectomy for later this month presents with progressive right upper quadrant pain after eating in the setting of stable vitals on admission, right upper quadrant tenderness with positive Maya's sign on physical exam, elevated bili and transaminases, CT evidence of cholelithiasis without evidence of cholecystitis, and MRCP with evidence of choledochlithiasis. -Case discussed with both GI and surgery Plan for ERCP Thursday Planned for laparoscopic cholecystectomy thereafter Common bile duct stone is small and thus alternative etiologies should be considered GI recommended obtaining autoimmune labs which are pending - still pending Symptoms have now resolved and cholestasis are improving Rash very similar to that of dermatitis herpetiformis so IgA testing completed PLAN: - NPO - Likely ERCP today - Pain control - Autoimmune w/u - IVF - Zosyn (2) Cholelithiasis Current Visit: Yes Status: Acute Assessment and Plan: Plans for lap melissa after ERCP (3) Pruritic rash Current Visit: Yes Status: Acute Assessment and Plan: Presumably secondary to cholestasis given timing and characteristics of rash. Rash very similar to that of dermatitis herpetiformis so IgA testing completed. - Benadryl cream when necessary - IgA testing pending DVT Prophylaxis: hold heparin for ERCP Internal Medicine: Result - Labs CBC & Chem 7: 06/28/19 05:04 06/28/19 05:04 Labs: Short CBC 06/28/19 Range/Units 05:04 WBC 4.4 (4.3-11.1) K/mcL Hgb 11.8 (11.5-15.4) g/dL Hct 35.6 (35.3-44.9) % Plt Count 210 (140-400) K/mcL BMP 06/27/19 06/28/19 10:40 05:04 Sodium 137 142 Potassium 3.3 L 3.6 Chloride 102 105 Carbon Dioxide 25 29 BUN 5 L 3 L Creatinine 0.64 0.48 L Glucose 121 H 99 Calcium 9.0 9.1 Liver Function 06/27/19 06/28/19 Range/Units 10:40 05:04 Total Bilirubin 5.0 H 2.3 H (0.3-1.0) mg/dL AST 125 H 95 H (13-39) Units/L ALT 266 H 220 H (7-52) Units/L Alkaline Phosphatase 155 H 138 H (34-104) Units/L Albumin 3.5 3.4 L (3.5-5.7) g/dL - ABG Interpretation ABG results: PT/INR, D-dimer PT 11.5 Seconds (9.4-12.1) 06/26/19 08:44 Consult Discharge Plan - Plan Referrals: Pal Gar MD [Primary Care Provider] - (2) Cholelithiasis Qualifiers: Cholelithiasis location: gallbladder Cholecystitis acuity: acute and chronic Biliary obstruction: without biliary obstruction Qualified Code(s): K80.12 - Calculus of gallbladder with acute and chronic cholecystitis without obstruction
[2019-06-28] MEDS ORDERED: Famotidine 20 MG/2 ML VIAL IVP ONE (11:32)
[2019-06-28] MEDS ORDERED: Pregabalin 75 MG CAPSULE PO ONE (11:33)
[2019-06-28] MEDS ORDERED: traMADol 50 MG TABLET PO PRN ×2 (11:35→16:44)
--- NOTE | 2019-06-28 12:23 | Anesthesia Evaluation PreOp ---
Date of Encounter: 06/28/19 Time of Encounter: 12:20 - Past History Planned Operation: Lap Cholecystectomy Cardiac History: Denies any Significant Hx Pulmonary History: Denies Any Significant HX RESERVOIR ENGINEER History: Denies Any Significant HX Other Medical History: Hepatic (Elevated Liver Enzymes), Other (Depression) Anesthesia History: No Prior Anesthetic Complications : No Alcohol Use: none Drug use: none Medications and Allergies Escitalopram [Lexapro] 10 mg PO DAILY 06/25/19 [History] Allergy/AdvReac Type Severity Reaction Status Date / Time No Known Allergies Allergy Verified 06/26/19 14:23 - Meds/Allergy Pre-op Review Medications Reviewed: Yes Allergies Reviewed: Yes Anesthesia Results - Labs 06/28/19 05:04 06/28/19 05:04 Anesthesia Exam O2 Sat Weight 89.7 kg O2 Sat by Pulse Oximetry 99 O2 Sat by Pulse Oximetry 99 O2 Sat by Pulse Oximetry 98 O2 Sat by Pulse Oximetry 97 O2 Sat by Pulse Oximetry 97 O2 Sat by Pulse Oximetry 96 Vital Signs Temp Pulse Resp BP Pulse Ox 97.6 F 101 15 152/84 97 06/25/19 19:14 06/25/19 19:14 06/25/19 19:14 06/25/19 19:14 06/25/19 19:14 Height: 5'6 Weight: 197 lbs NPO (# of Hours): MN Pain Scale: 0 - HEENT Pupil (Motor): Pupils equal, EOMI Mallampati: II Teeth: Normal Oral Opening: Greater than 3 - RESERVOIR ENGINEER LOC: Oriented RESERVOIR ENGINEER Motor: Normal RUE, Normal LUE, Normal RLE, Normal LLE, Normal Face RESERVOIR ENGINEER Sensory: Normal: RUE, LUE, RLE, LLE, Face - Cardiac Rhythm: Regular Murmur: None JVD: No Carotid Bruit: No - Pulmonary Breath Sounds: bilateral Clear Respiratory Effort: Symmetrical Anesthesia Assess/Plan ASA Score: 2 Level of consciousness: Cooperative, Oriented Anesthetic Plan: General Autologous Blood: No Monitoring Plan: Standard Monitors Recovery Plan: PACU (Discussed GA, agrees to proceed)
[2019-06-28] MEDS ORDERED: Ondansetron 4 MG/2 ML VIAL IVP ONE ×2 (12:24→16:44)
[2019-06-28] MEDS ORDERED: *HR* Promethazine 25 MG/ML VIAL IVP PRN ×2 (12:24→16:44)
[2019-06-28] MEDS ORDERED: *HR* OxyCODONE Immed Rel 5 MG TABLET PO PRN ×3 (12:24→16:44)
[2019-06-28] MEDS ORDERED: *HR* Midazolam HCl 2 MG/2 ML VIAL ONE (12:43)
[2019-06-28] MEDS ORDERED: CefOXitin 1,000 MG VIAL ONE (12:44)
[2019-06-28] MEDS ORDERED: Lidocaine -MPF 4% 5 ML AMPUL ONE (12:45)
[2019-06-28] MEDS ORDERED: *HR* Propofol 200 MG/20 ML VIAL IVP ONE (12:45)
[2019-06-28] MEDS ORDERED: Dexamethasone 4 MG/ML VIAL ONE ×2 (12:45)
[2019-06-28] MEDS ORDERED: Lidocaine -MPF 2% 2 ML VIAL ONE (12:45)
[2019-06-28] MEDS ORDERED: Ondansetron 4 MG/2 ML VIAL ONE (12:45)
[2019-06-28] MEDS ORDERED: *HR* Rocuronium Bromide 50 MG/5 ML VIAL ONE (12:45)
[2019-06-28] MEDS ORDERED: *HR* Succinylcholine 200 MG/10 ML VIAL IVP ONE (12:45)
[2019-06-28] MEDS ORDERED: *HR* FentaNYL (PF) 100 MCG/2 ML VIAL ONE ×2 (12:46→13:49)
--- NOTE | 2019-06-28 12:58 | Gastroenterology Consult Note ---
<Terry Mackey - Last Filed: 06/28/19 12:53> Date of Encounter: 06/28/19 Time of Encounter: 11:00 - Assessment and plan (1) Cholelithiasis with choledocholithiasis Current Visit: Yes Status: Acute Assessment and plan: CT abdomen showed intra and extrahepatic biliary ductal dilatation with vague low attenuating focus in the pancreatic head/uncinate process. MRI abdomen showed mild to moderate intra- and extrahepatic biliary dilatation, CBD demonstrates normal distal tapering, questionable distal CBD stone measuring 2 mm may be present. On admission TB 5, AST 242, ALT 451, and AP 160 Yesterday TB 5, AST 125, ALT 266, AP 155. Today TB 2.3, AST 95, ALT 220, AP 138. Stone likely passed without intervention. Recommend cholecystectomy with intraoperative cholangiogram. If obstruction noted on IOC, will plan for ERCP tomorrow. Continue to monitor hepatic panel daily. - Time Spent With Patient Total time spent is greater than 50% in coordination of care (as documented) at patient's floor/unit and/or counseling patient: GI History of Present Illness - Data of Consult Patient: new to practice Consult date: 06/28/19 Requesting Physician: Terry Villalba - Consult Narrative Reason for consult: Choledocholithiasis History of present illness: Ms. Mercado is a 59 year old female with no significant past medical history presented to the ED with complaints of abdominal pain that started and is worsened with certain food. Patient states she has an appointment with Dr. Huffman for elective cholecystectomy which has been postponed on 2 occasions and has been postponed until July 12. On admission, patient was jaundiced, with TB 5, AST 242, ALT 451, and AP 160. CT abdomen showed intra and extrahepatic biliary ductal dilatation with vague low attenuating focus in the pancreatic head/uncinate process. MRI abdomen showed mild to moderate intra- and extrahepatic biliary dilatation, CBD demonstrates normal distal tapering, ques tionable distal CBD stone measuring 2 mm may be present. Procedures: Colonoscopy 10/18/2014 Dr. Martell: Melanosis of colon. NSAIDs: None Anticoagulation: None Past Med Surg Social Fam HX - Past Medical History Medical history: no medical history Additional medical history: Depression. Abnormal Hida Scan. Right Upper Abdominal Pain Psychiatric history: no psych history - Past Surgical History Surgical History: - Social History Smoking Status: Never smoker Smokeless Tobacco Status: No Alcohol use: none Drug use: none - Family History Father Adopted: No Family Member Ethnicity: Non- Living Status: Age at : 74 Cause of : cancer Hx Family Cancer: Yes (stomach) - Gastrointestinal Gastrointestinal: Present: as per HPI - Constitutional Constitutional: as per HPI - EENT Eyes: as per HPI Ears: Present: as per HPI Nose, mouth and throat: Present: as per HPI - Cardiovascular Cardiovascular ROS: Present: as per HPI - Respiratory Respiratory IM: Present: as per HPI - Genitourinary Genitourinary: Absent: change in color, Urinary frequency - Neurological ROS Neurological GI: Present: as per HPI - Hematologic/Lymphatic Hematologic/Lymphatic pediatric: Present: as per HPI - Musculoskeletal Musculoskeletal ROS GI: Present: as per HPI - Integumentary Integumentary GI: Present: as per HPI - Psychiatric ROS Psychiatric GI: Present: as per HPI - Endocrine Endocrine IM: Present: as per HPI - Constitutional Vitals: Temp Pulse Resp BP Pulse Ox 98.1 F 74 20 130/81 99 06/28/19 11:35 06/28/19 11:35 06/28/19 11:35 06/28/19 11:35 06/28/19 11:35 General appearance: Present: cooperative, A&O X 3, no acute distress, answers questions appropriately - Head Head exam: Present: atraumatic, normocephalic - Eye Eye exam: Present: normal appearance, sclera anicteric - ENT ENT exam: Present: mucous membranes dry - Neck Neck exam general surgery: Present: normal inspection, trachea midline - Respiratory Respiratory exam: Present: CTAB. Absent: rales, rhonchi - Cardiovascular Cardiovascular exam: Present: RRR, +S1, +S2 - GI/Abdominal GI/Abdominal exam: Present: soft, no peritoneal signs. Absent: distended, firm, guarding, tenderness - Rectal Rectal exam: Present: deferred - Extremities Exam Extremities exam: Present: warm - Neurological Exam Neurological exam: Present: no focal deficits - Psychiatric Psychiatric exam: Present: normal affect, normal mood - Skin Skin exam: Present: dry, intact, normal color, warm Results - Labs CBC & Chem 7: 06/28/19 05:04 06/28/19 05:04 Labs: Last Result 06/28/19 05:04 Calcium 9.1 Entire Visit 06/28/19 06/28/19 05:04 05:04 Hgb 11.8 Hct 35.6 Total Bilirubin 2.3 H AST 95 H ALT 220 H - ABG ABG results: PT/INR, D-dimer PT 11.5 Seconds (9.4-12.1) 06/26/19 08:44 Consult Discharge Plan - Plan Referrals: Pal Gar MD [Primary Care Provider] - <Freedom Oneal - Last Filed: 06/28/19 18:29> Date of Encounter: 06/28/19 Time of Encounter: 17:45 - Time Spent With Patient Total time spent is greater than 50% in coordination of care (as documented) at patient's floor/unit and/or counseling patient: GI History of Present Illness - Data of Consult Requesting Physician: Terry Vlilalba - Consult Narrative History of present illness: Ms. Mercado is a 59 year old female - Constitutional Vitals: Temp Pulse Resp BP Pulse Ox 98.4 F 55 16 129/84 99 06/28/19 17:58 06/28/19 17:58 06/28/19 17:58 06/28/19 17:58 06/28/19 17:58 Results - Labs CBC & Chem 7: 06/28/19 05:04 06/28/19 05:04 - ABG ABG results: PT/INR, D-dimer PT 11.5 Seconds (9.4-12.1) 06/26/19 08:44 - Impressions Impressions Cholangiogram,Operative 06/28/19 14:06 IMPRESSION: Question of a distal common bile duct stone versus a lesion within the wall of the distal common bile duct. Findings were discussed with Dr. Martell on 06/28/2019 at 2:45 p.m. D/ / Jono Carney MD / Jono Carney MD Interpreting Provider: Jono Carney MD - Attending Attestation I have personally performed a face to face evaluation on this patient. I have reviewed and agree with the care plan. History and Exam by me shows: Patient seen. Has postop abdominal pain. On examination: Alert and awake not in acute distress. Assessment: Patient admitted with elevated LFTs but LFTs are better today and she underwent a gallbladder surgery with IOC. IOC was unremarkable. Recommendation: LFTs in the morning if no acute rise then no need for ERCP
[2019-06-28] MEDS ORDERED: Isovue-300 50 ML VIAL ONE (13:18)
[2019-06-28] MEDS ORDERED: Neostigmine Methylsulfate 3 MG/3 ML SYRINGE ONE ×2 (14:00→14:45)
[2019-06-28] MEDS ORDERED: Ketorolac 30 MG/ML VIAL ONE (14:41)
[2019-06-28] MEDS ORDERED: *HR* HYDROMORPHONE 2 MG/ML VIAL ONE (14:51)
--- NOTE | 2019-06-28 15:25 | Operative Note ---
Date of procedure: 06/28/19 Pre-op diagnosis: Cholelithiasis and obstructive jaundice Post-op diagnosis: other (Cholelithiasis no evidence of choledocholithiasis. Mildly abnormal cholangiogram) Procedure: Laparoscopic cholecystectomy, cholangiogram Anesthesia: KELLYA Surgeon: Porfirio Martell Was there an assistant hall director present: No Estimated blood loss (cc): 10 Specimen: Gallbladder and contents Condition: stable Disposition: PACU Procedure in Detail: Laparoscopic cholecystectomy and intraoperative cholangiogram Operative procedure: after informed consent and appropriate patient identification, the patient was taken to the major operating suite and placed supine position and given adequate general endotracheal anesthesia. The abdomen was prepped and draped in sterile fashion utilizing ChloraPrep standard draping techniques. Timeout was taken and the patient was identified. I made a vertical midline incision below the umbilicus and dissected down to level of fascia. I placed 2 traction stitches of 0 vicryl in the midline fascia and the abdominal cavity was entered visually. A Boo trocar was placed in the abdomen and the abdomen was insufflated to 15 mmHg pressure CO2. The gallbladder was visualized. I placemed an 11 port in the subxiphoid area and two 5 mm ports in the subcostal area. The gallbladder was visualized and had chronic inflammatory adhesions on the entire surface. The gallbladder was grasped and elevated. Chronic inflammatory adhesions were divided. A variety of blunt and sharp dissection techniques were used to isolate the cystic duct and cystic artery. The cystic artery was positioned anterior to the cystic duct. The cystic artery was controlled with 2 surgical clips proximally and one distally and it was divided. Dissection of the cystic duct was very difficult secondary to tortuosity. The initial placement of the cholangiogram catheter was unsuccessful with leakage. Secondary placement of the cholangiogram was successful. I placed a surgical clip on the neck the gallbladder and obtained an intraoperative cholangiogram using 10 mL of Isovue. Intraoperative cholangiogram demonstrated proximal and distal filling in the common bile duct and filling of the hepatic radicles. There was flow into the duodenum., However, magnified views demonstrated what appeared to be a submucosal filling defect. The etiology is unclear. This did not appear to be choledocholithiasis. Further review by radiology and gastroenterology will be necessary for further management.. The cholangiocatheter was removed and the cystic duct was controlled with 2 surgical clips proximally and was divided. The gallbladder was removed from the gallbladder fossae using electrocautery. The gallbladder was removed from the abdomen through the #11 port site. I replaced the #11 port and irrigated with copious amounts of antibiotic containing solution. There was no evidence of bleeding or bile leak. All trochars were removed. Fascia was closed with 0 Vicryl and the skin with 2-0 and 4-0 Vicryl. She tolerated the procedure well and was transferred to recovery in stable condition
[2019-06-28] MEDS: *HR* HYDROmorphone (PF) 1 MG/ML SYRINGE IVP PRN ×2 (15:34→15:40)
--- NOTE | 2019-06-28 16:09 | Anesthesia Evaluation Post Op ---
Date of Encounter: 06/28/19 Time of Encounter: 16:00 - Discharge PostOp Status: Transfer Patient to floor (Patient's vital signs have been reviewed. Patient is stable postoperatively and has adequately recovered from anesthesia. Patient is determined to have stable airway patency and respiratory function including respiratory rate and oxygen saturation. Patient has a stable heart rate, blood pressure and adequate hydration. Patients mental status is acceptable. Patients temperature is appropriate. Pain and nausea are adequately controlled)
[2019-06-28] MEDS ORDERED: Ringers Solution, Lactated 1,000 ML IVC SCH (16:44)
[2019-06-28] MEDS ORDERED: Naloxone 0.4 MG/ML INJ IVP PRN (16:44)
[2019-06-28] MEDS ORDERED: *HR* HYDROmorphone (PF) 1 MG/ML SYRINGE IVP PRN (16:44)
[2019-06-28] MEDS ORDERED: DiphenhydraMINE CREAM 28.4 GM TUBE TP PRN (16:44)
[2019-06-28] MEDS ORDERED: Ondansetron 4 MG/2 ML VIAL IVP PRN (16:44)
[2019-06-29 06:12] LABS: Hematocrit 32.5 % (35.3-44.9); Hemoglobin 10.6 g/dL (11.5-15.4); Mean Corpuscular HGB Conc 32.6 g/dL (31.6-35.5); Mean Corpuscular Hemoglobin 33.3 pg (28.0-33.3); Mean Corpuscular Volume 102.2 fL (83.0-100.0); Mean Platelet Volume 9.8 fL (9.4-12.4); Platelet Count 206 K/mcL (140-400); Red Blood Count 3.18 M/mcL (3.82-4.97); Red Cell Distribution Width 12.8 % (11.5-14.5)
[2019-06-29 06:13] LABS: White Blood Count 7.2 K/mcL (4.3-11.1)
[2019-06-29 06:24] VITALS: BP 113/66
[2019-06-29 06:39] LABS: Albumin 3.2 g/dL (3.5-5.7); Albumin/Globulin Ratio 1.5 (1.1-2.2); Bilirubin,Direct 0.8 mg/dL (0.0-0.2); Bilirubin,Indirect 0.8 mg/dL (0.0-1.2); Bilirubin,Total 1.6 mg/dL (0.3-1.0); Globulin 2.1 g/dL (2.4-3.5); Total Protein 5.3 g/dL (6.4-8.9)
[2019-06-29] MEDS: Piperacillin/Tazobactam 3.375 GM in 0.9 % Sodium Chloride Mini Bag 100 ML IVPB SCH (07:36)
--- NOTE | 2019-06-29 09:47 | Discharge Summary ---
Orders not resulted at time of discharge: Pending orders 06/26/19 08:44 Cancer Antigen-GI (CA 19-9) Routine 06/26/19 18:15 MARA IgG GIACOMO rflx IFA Routine Mitochondrial M2 Antibody, IgG Routine Burt Antibody, IGG Routine 06/28/19 05:04 Endomysial Antibody IgA by IFA Routine Tissue Transglutaminase Ab,IgA AM 0400 06/28/19 14:49 Surgical Pathology [PTH] Routine Date of Encounter: 06/29/19 Time of Encounter: 09:44 - Discharge Diagnosis (1) Cholelithiasis with choledocholithiasis Priority: Primary Status: Acute Comments: 59F s/p ERCP, s/p lap melissa with normalization of t bili; tolerating diet, pain controlled, having bowel function,voiding on her own; okay for discharge, no abx needed can follow up with surgery in 2-4 weeks General Surgery Exam Initial Vital Signs Temp Pulse Resp BP Pulse Ox 97.6 F 101 15 152/84 97 06/25/19 19:14 06/25/19 19:14 06/25/19 19:14 06/25/19 19:14 06/25/19 19:14 - General physical appearance no distress - Eyes other (no scleral icterus) - Respiratory normal expansion, normal respiratory effort - Cardiovascular Cardiovascular exam: Present: RRR - Abdomen Abdomen general surgery: Present: soft, tender (appropriately tender) - Incision Incision: Present: clean and dry, intact - Integumentary Integumentary general surgery: Present: warm and dry, no abnormal pigmentation - Neurologic Present: CN 2-12 grossly intact - Musculoskeletal Present: normal posture - Psychiatric Psychiatric general surgery: Present: A&Ox3 - Hospital Course Hospital course: Ms. Mercado is a 59 year old female Time spent discussing smoking cessation with patient: 3 to 10 minutes - Time Spent with Patient Total time spent providing and/or coordinating discharge services: Greater than 30 minutes - Discharge Medications Prescriptions: New OxyCODONE Immed Rel [Roxicodone 5 MG] 5 mg PO Q6HR PRN 7 Days #28 tablet PRN Reason: Pain Continued Escitalopram [Lexapro] 10 mg PO DAILY Home Medications: Escitalopram [Lexapro] 10 mg PO DAILY 06/25/19 [History] OxyCODONE Immed Rel [Roxicodone 5 MG] 5 mg PO Q6HR PRN 7 Days #28 tablet 06/29/19 [Rx] Allergies/Adverse Reactions: Allergy/AdvReac Type Severity Reaction Status Date / Time No Known Allergies Allergy Verified 06/26/19 14:23 Date of admission: 06/25/19 23:07 Primary care physician: Pal Gar MD Consults: 06/26/19 04:58 Consult to Gastroenterology [CONS] Routine Consulting Provider: [facility] [place] Reason for Consult: Concern for Cholelidoclithiasis vs pancreatic neoplasm Call Completed: No Consult to Surgery [CONS] Routine Consulting Provider: Acute Care Surgery Reason for Consult: Concern for Acute Cholecystitis Call Completed: No Discharging clinician: Isac Wick Anticipated date of discharge: 06/29/19 Labs on day of discharge: Labs from last 24 hours 06/29/19 06/29/19 05:40 05:40 WBC 7.2 D RBC 3.18 L Hgb 10.6 L Hct 32.5 L MCV 102.2 H MCH 33.3 MCHC 32.6 RDW 12.8 Plt Count 206 MPV 9.8 Total Bilirubin 1.6 H Direct Bilirubin 0.8 H Indirect Bilirubin 0.8 AST 114 H ALT 201 H Alkaline Phosphatase 132 H Serum Total Protein 5.3 L Albumin 3.2 L Globulin 2.1 L Albumin/Globulin Ratio 1.5 - Impressions ITS Impressions Gallbladder Ultrasound 06/25/19 21:03 IMPRESSION: Intra and extrahepatic biliary ductal dilatation. A distal obstructing lesion is not excluded. Additional imaging with MRI with MRCP or ERCP should be considered. D/ / Nicanor Bañuelos / Nicanor Bañuelos Interpreting Provider: Nicanor Bañuelos Abdomen CT 06/25/19 21:43 IMPRESSION: Intra and extrahepatic biliary ductal dilatation with vague low attenuating focus in the pancreatic head/uncinate process. MRI with MRCP is advised for complete characterization. Cholelithiasis without evidence of cholecystitis. Layering biliary sludge. The findings were sent to the [facility]iology [facility] at 10:44 pm on 06/25/2019to be communicated to a licensed caregiver. D/ / Nicanor Bañuelos / Nicanor Bañuelos Interpreting Provider: Nicanor Bañuelos Abdomen MRI 06/26/19 04:49 IMPRESSION: 1. Mild to moderate intra- and extrahepatic biliary dilatation. The common bile duct demonstrates normal distal tapering. Questionable distal common bile duct stone measuring 2 mm may be present. No discrete periampullary mass or pancreatic mass. 2. Cholelithiasis with gallbladder sludge. No MRI evidence of acute cholecystitis. D/ / 06/26/2019 16:38:16 Susy Bush MD / dixie Interpreting Provider: Susy Bush MD Cholangiogram,Operative 06/28/19 14:06 IMPRESSION: Question of a distal common bile duct stone versus a lesion within the wall of the distal common bile duct. Findings were discussed with Dr. Martell on 06/28/2019 at 2:45 p.m. D/ / Jono Carney MD / Jono Carney MD Interpreting Provider: Jono Carney MD - Patient Status Disposition: Home, Self-Care Condition: Good Functional capacity at discharge: independent ambulation Overall status at discharge: patient is progressing back to baseline - Discharge Instructions Follow Up With: Pal Gar MD [Primary Care Provider] - Porfirio Martell MD [Partnered Physician] - (2-4wk follow up) Additional Instructions: Pain Narcotics are prescribed. 1-2 tabs every 6 hours. Please take with meals. DO NOT drive while taking narcotics. Activity As tolerated. However, I encourage you to limit heaving lifting and strenuous activity until evaluated in clinic. Diet As tolerated. Please start with liquids for the first 6 hours after surgery. Your meal after 6 hours can be a regular diet. Bowel Regimen As long as you are taking narcotics, please take the stool softner daily. Warnings If you experience significant redness around the incision or drainage from the incision that is purulent or malodorous, or you experience fevers, chills, or food intolerance (including nausea, vomiting, abdominal pain or distension), jaundice or yellow skin, eyes, tongue/cheek, or any symptoms you feel warrant evaluation, please call the office. If unable to reach the office, please go to nearest urgent care center or emergency department - Diet and Activity Activity: increase activity as tolerated Diet: advance to your usual diet
--- NOTE | 2019-06-29 09:49 | AcuteCareSurgery Progress Note ---
Date of Encounter: 06/29/19 Time of Encounter: 09:30 Subjective Patient reports: no new complaints, feels better, tolerating liquids well, voiding w/o difficulty, flatus, afebrile Objective Vital Signs - Last 8 Hours Temp Pulse Resp BP Pulse Ox 06/29/19 06:19 98.6 F 68 16 113/66 94 06/29/19 03:17 98.6 F 74 16 121/69 96 Intake and Output 06/28/19 06/29/19 06/29/19 23:59 07:59 15:59 Intake Total 100 / 460 360 / 460 Balance 100 / 460 360 / 460 Intake: IV Fluids 100 / 100 Zosyn 3.375 GM In 0.9 % Sodium 100 / 100 Chloride (Mini-Bag +) 100 ML @ 25 mls/hr IVPB Q8H JAVID Rx#: [id number] Oral 0 / 360 360 / 360 Other: Meal Breakfast # Voids 1 1 - General physical appearance well developed, well nourished, no distress - Eyes normal ocular movement - ENT normal mucosa, atraumatic, normocephalic - Neck Neck exam: trachea midline - Respiratory normal respiratory effort, clear to auscultation - Cardiovascular Cardiovascular exam: Present: RRR - Abdomen Abdomen: Present: bowel sounds present, soft, tender (Expected postoperative tenderness) - Incision Incision: Present: clean and dry, intact - Neurologic CN 2-12 grossly intact - Musculoskeletal normal gait, normal posture - Psychiatric oriented to time, oriented to person, oriented to place, speech is normal, memory intact - Labs 06/29/19 05:40 06/28/19 05:04 Diabetes panel 06/29/19 Range/Units 05:40 AST 114 H (13-39) Units/L ALT 201 H (7-52) Units/L Alkaline Phosphatase 132 H (34-104) Units/L Albumin 3.2 L (3.5-5.7) g/dL Calcium panel 06/29/19 Range/Units 05:40 Albumin 3.2 L (3.5-5.7) g/dL Adrenal panel 06/29/19 Range/Units 05:40 Total Bilirubin 1.6 H (0.3-1.0) mg/dL AST 114 H (13-39) Units/L ALT 201 H (7-52) Units/L Alkaline Phosphatase 132 H (34-104) Units/L Albumin 3.2 L (3.5-5.7) g/dL Consult Discharge Plan - Plan Referrals: Pal Gar MD [Primary Care Provider] - Prescriptions: OxyCODONE Immed Rel [Roxicodone 5 MG] 5 mg PO Q6HR PRN 7 Days #28 tablet PRN Reason: Pain
--- NOTE | 2019-06-29 10:25 | Discharge Summary ---
- NOTES TO OUTPATIENT PROVIDER Notes to Outpatient Provider: Patient was admitted with right upper quadrant abdominal pain with evidence of cholelithiasis on MRCP. Patient had cholecystectomy done by general surgery. Follow with surgery as outpatient. She also has to follow up with GI as she had intra-and extra biliary duct dilation and abnomral interaoperative cholangiogram with pending autoimmune antibodies. Orders not resulted at time of discharge: Pending orders 06/26/19 18:15 MARA IgG GIACOMO rflx IFA Routine Mitochondrial M2 Antibody, IgG Routine Burt Antibody, IGG Routine 06/28/19 05:04 Endomysial Antibody IgA by IFA Routine Tissue Transglutaminase Ab,IgA AM 0400 06/28/19 14:49 Surgical Pathology [PTH] Routine Date of Encounter: 06/29/19 Time of Encounter: 09:00 - Discharge Diagnosis (1) Pruritic rash Priority: Secondary Status: Acute (2) Cholelithiasis Priority: Primary Status: Resolved Qualifiers: Cholelithiasis location: gallbladder Cholecystitis acuity: acute and chronic Biliary obstruction: without biliary obstruction Qualified Code(s): K80.12 - Calculus of gallbladder with acute and chronic cholecystitis without obstruction (3) Choledocholithiasis Priority: Secondary Status: Resolved Hospital course: Ms. Mercado is a 59 year old female who came to the hospital with right upper quadrant abdominal pain. Initial CT scan of the abdomen revealed intra-and extrahepatic biliary ductal dilation and vague low-attenuation focus in the pancreatic head/unicate process. MRI abdomen revealed mild to moderate intra-and extrahepatic dilation with a questionable choledocholithiasis in the common bile duct with no ampullary mass or pancreatic mass. GI and GS were consulted. Patient was taken to OR for Lap cholecystectomy. Intraoperative cholangiogram revealed evidence of a distal common bile duct stone versus a lesion within the wall of the distal common bile duct. Autoimmune antibodies for cholestasis are pending LFTs trended down postprocedure. Today general surgery cleared the patient for discharge and she will be discharged home in stable condition to follow up with general surgery and GI as outpatient. Discharge discussed with: patient - Time Spent with Patient Total time spent providing and/or coordinating discharge services: 40 minutes - Discharge Medications Prescriptions: New OxyCODONE Immed Rel [Roxicodone 5 MG] 5 mg PO Q6HR PRN 7 Days #28 tablet PRN Reason: Pain Continued Escitalopram [Lexapro] 10 mg PO DAILY Home Medications: Escitalopram [Lexapro] 10 mg PO DAILY 06/25/19 [History] OxyCODONE Immed Rel [Roxicodone 5 MG] 5 mg PO Q6HR PRN 7 Days #28 tablet 06/29/19 [Rx] Allergies/Adverse Reactions: Allergy/AdvReac Type Severity Reaction Status Date / Time No Known Allergies Allergy Verified 06/26/19 14:23 Date of admission: 06/25/19 23:07 Primary care physician: Pal Gar MD Consults: 06/26/19 04:58 Consult to Gastroenterology [CONS] Routine Consulting Provider: [facility] [place] Reason for Consult: Concern for Cholelidoclithiasis vs pancreatic neoplasm Call Completed: No Consult to Surgery [CONS] Routine Consulting Provider: Acute Care Surgery Reason for Consult: Concern for Acute Cholecystitis Call Completed: No - Constitutional Vitals: Temp Pulse Resp BP Pulse Ox 98.6 F 68 16 113/66 94 06/29/19 06:19 06/29/19 06:19 06/29/19 06:19 06/29/19 06:19 06/29/19 06:19 Exam: General: Ill-appearing and in no acute distress HEENT: No erythema of posterior pharynx. No exudates. Lymphatics: No mandibular or cervical lymphadenopathy Cardiovascular: RRR. No murmurs. No chest wall tenderness. Lungs: Clear to auscelltation bilaterally. Regular chest rise. Abdomen: Non-tender. No rebound or gaurding. Nl bowel sounds. wounds appear clean Extremities: No edema. 2+ pulses radial and pedal pulses Skin: Papular rash around flexor surfaces of wrist and extensor surface of forearms. Erythroderma of groin region. Psych: Nl attention. A&Ox3 Neuro: engineering consultant II-XII intact. 5/5 strength. Sensation to light touch and pinprick intact. - Patient Status Disposition: Home, Self-Care Condition: Good Functional capacity at discharge: independent ambulation Overall status at discharge: patient is back to baseline - Discharge Instructions Instructions: Cholecystitis (DC), Endoscopic Retrograde Cholangiopancreatography (DC) Follow Up With: Katlyn Grimes CNP [Advanced Practice Nurse] - 07/26/19 4:00 pm Freedom Oneal MD [Partnered Physician] - (Web request. Office will call patient with date and time of appointment. Thank you) Pal Gar MD [Primary Care Provider] - Additional Instructions: Pain Narcotics are prescribed. 1-2 tabs every 6 hours. Please take with meals. DO NOT drive while taking narcotics. Activity As tolerated. However, I encourage you to limit heaving lifting and strenuous activity until evaluated in clinic. Diet As tolerated. Please start with liquids for the first 6 hours after surgery. Your meal after 6 hours can be a regular diet. Bowel Regimen As long as you are taking narcotics, please take the stool softner daily. Warnings If you experience significant redness around the incision or drainage from the incision that is purulent or malodorous, or you experience fevers, chills, or food intolerance (including nausea, vomiting, abdominal pain or distension), jaundice or yellow skin, eyes, tongue/cheek, or any symptoms you feel warrant evaluation, please call the office. If unable to reach the office, please go to nearest urgent care center or emergency department - Diet and Activity Activity: increase activity as tolerated, resume usual activities as tolerated Diet: low salt diet
[2019-06-30 10:20] LABS: ANA IgG by ELISA NONE DETECTED (None Detected)
[2019-06-30 10:21] LABS: Tissue Transglutaminase IgA 1 U/mL (0-3)
== END 2019-06-29 10:38 | disposition home or self-care (01) | DRG 419 ==
LOC: EMEROOARM 18:43 → 3ANU 18:43 → SUATTDRO 23:07
PROVIDERS: ADMIT Internal Medicine; ATTEND Internal Medicine